=== PATIENT | male | born 1985 | race Caucasian/White ===

== ENCOUNTER 2017-09-16 12:38 | Emergency (ER) | payer BC ==
[2017-09-16] MEDS ORDERED: NA CHLORIDE 0.9% 500 ML ONE (13:29)
[2017-09-16 13:41] LABS: Absolute Lymphocytes (CBC) 1.4 K/uL (0.7-4.9); Absolute Monocytes 0.5 K/uL (0.1-1.3); Absolute Neutrophil 4.2 K/uL (1.8-8.0); Basophils % 0.5 % (0-1.3); Eosinophils % 2.3 % (0-4.4); Hematocrit 48.1 % (39.6-49.0); Lymphocytes % 22.3 % (15.3-44.8); MCH 32.2 pg (27.0-35.0); MCV 94.2 fL (80-100); MPV 9.2 fL (7.6-11.3); Monocytes % 7.9 % (3.3-12.3); RBC Red Blood Cell Count 5.11 M/uL (4.33-5.43)
[2017-09-16 13:47] LABS: Protime INR 1.02
[2017-09-16 13:58] LABS: Albumin 4.6 g/dL (3.4-5.0); Bilirubin Direct 0.4 mg/dL (0-0.2); Bilirubin Total 1.3 mg/dL (0.2-1.0); CKMB Creatine Kinase MB 2.4 ng/mL (0.3-3.6); Potassium 3.1 mmol/L (3.5-5.1); Protein, Total 9.1 g/dL (6.4-8.2)
--- NOTE | 2017-09-16 14:13 | RAD REPORT ---
EXAM DESCRIPTION: Robert Bello (2 Views)09/16/2017 2:07 pm CLINICAL HISTORY: Chest pain COMPARISON: none FINDINGS: The lungs appear clear of acute infiltrate. The heart is normal size IMPRESSION: No acute abnormalities displayed
--- NOTE | 2017-09-16 16:51 | ER ---
Nurse's Notes [facility] Name: Cecil Kruse Jr Age: 31 yrs Sex: Male : 1985 Arrival Date: 09/16/2017 Time: 12:41 Bed 6 Private MD: None, None Diagnosis: Chest pain, unspecified Presentation: 09/16 12:42 Presenting complaint: Patient states: Chest pain 6/10 and mild SOB x 3 days. Pain is hb described as tightness. Pt reports he climbed a mountain in August and experienced similar kind of pain. Transition of care: patient was not received from another setting of care. Onset of symptoms was September 13, 2017. Risk Assessment: Do you want to hurt yourself or someone else? Patient reports no desire to harm self or others. Care prior to arrival: None. 12:42 Method Of Arrival: Ambulatory hb 12:42 Acuity: ISREAL 3 hb 13:00 Initial Sepsis Screen: Does the patient meet any 2 criteria? No. Patient's initial jl7 sepsis screen is negative. Does the patient have a suspected source of infection? No. Patient's initial sepsis screen is negative. Triage Assessment: 13:00 General: Appears in no apparent distress. uncomfortable, Behavior is calm, cooperative, jl7 appropriate for age. Pain: Complains of pain in mid-sternal area. Cardiovascular: Patient's skin is warm and dry. Rhythm is sinus rhythm. Historical: - Allergies: 12:47 Amoxicillin; hb - Immunization history:: Adult Immunizations up to date. - Social history:: Smoking status: Patient uses tobacco products, smokes one-half pack cigarettes per day. - Ebola Screening: : No symptoms or risks identified at this time. - Family history:: not pertinent. - Hospitalizations: : No recent hospitalization is reported. Screenin:32 Abuse screen: Denies threats or abuse. Denies injuries from another. Nutritional jl7 screening: No deficits noted. Tuberculosis screening: No symptoms or risk factors identified. Fall Risk IV access (20 points). Total Escobedo Fall Scale indicates No Risk (0-24 pts). Assessment: 13:00 General: Appears in no apparent distress. uncomfortable, well groomed, well developed, sg well nourished, Behavior is cooperative, appropriate for age, anxious. Pain: Complains of pain in mid-sternal area Pain does not radiate. Pain currently is 6 out of 10 on a pain scale. at worst was 10 out of 10 on a pain scale. Neuro: Level of Consciousness is awake, alert, obeys commands, Oriented to person, place, time, situation, Moves all extremities. Full function Gait is steady, Speech is normal, Facial symmetry appears normal. Cardiovascular: Heart tones S1 S2 present Capillary refill is brisk in bilateral fingers Patient's skin is warm and dry. Chest pain is described as mild, is located in anterior chest wall. Respiratory: Airway is patent Respiratory effort is even, unlabored, Respiratory pattern is regular, symmetrical, Breath sounds are clear. GI: Abdomen is round non-distended, Reports nausea. : No signs and/or symptoms were reported regarding the genitourinary system. EENT: No signs and/or symptoms were reported regarding the EENT system. Derm: Skin is pink, warm \T\ dry. Musculoskeletal: Circulation, motion, and sensation intact. Range of motion: intact in all extremities, Swelling absent. 14:00 Reassessment: Patient appears in no apparent distress at this time. Patient and/or sg family updated on plan of care and expected duration. Pain level reassessed. Patient is alert, oriented x 3, equal unlabored respirations, skin warm/dry/pink. Patient states symptoms have not improved. 15:00 Reassessment: Patient and/or family updated on plan of care and expected duration. Pain jl7 level reassessed. Patient is alert, oriented x 3, equal unlabored respirations, skin warm/dry/pink. 16:19 Reassessment: Patient appears in no apparent distress at this time. Patient and/or jl7 family updated on plan of care and expected duration. Pain level reassessed. Patient is alert, oriented x 3, equal unlabored respirations, skin warm/dry/pink. Vital Signs: 12:46 BP 149 / 100; Pulse 112; Resp 18; Temp 97.7; Pulse Ox 100% ; Pain 8/10; hb 14:15 BP 138 / 85; Pulse 78; Resp 16; Pulse Ox 100% ; jl7 16:16 BP 136 / 85; Pulse 70; Resp 14; Pulse Ox 100% ; jl7 ED Course: 12:41 Patient arrived in ED. sb2 12:41 None, None is Private Physician. sb2 12:46 Triage completed. hb 12:46 Arm band placed on left wrist. hb 12:48 Franko Ziegler MD is Attending Physician. rn 12:56 Harmeet Arroyo RN is Primary Nurse. sg 13:00 Patient has correct armband on for positive identification. Placed in gown. Bed in low jl7 position. Call light in reach. Side rails up X 1. program control analyst on. Pulse ox on. NIBP on. 13:00 Initial lab(s) drawn, by me, sent to lab. Inserted saline lock: 20 gauge in right jl7 antecubital area, using aseptic technique. Blood collected. Patient maintains SpO2 saturation greater than 95% on room air. 13:56 Patient moved to radiology via wheelchair. jb2 15:29 Lipase Sent. sg 15:29 D-Dimer Sent. sg 15:29 Basic Metabolic Panel Sent. sg 15:29 CBC with Diff Sent. sg 15:30 Ckmb Sent. sg 15:30 CPK Sent. sg 15:30 LFT's Sent. sg 15:30 NT PRO-BNP Sent. sg 15:30 PT-INR Sent. sg 15:30 Ptt, Activated Sent. sg 15:30 Troponin (emerg Dept Use Only) Sent. sg 17:03 No provider procedures requiring assistance completed. IV discontinued, intact, jl7 bleeding controlled, No redness/swelling at site. Pressure dressing applied. Administered Medications: 13:15 Drug: NS 0.9% 500 ml Route: IV; Rate: bolus; Site: right antecubital; sg 13:56 Follow up: IV Status: Completed infusion jl7 Outcome: 16:50 Discharge ordered by . rn 17:02 Discharged to home ambulatory. jl7 17:02 Condition: stable 17:02 Discharge instructions given to patient, Instructed on discharge instructions, follow up and referral plans. Demonstrated understanding of instructions, follow-up care. 17:04 Patient left the ED. jl7 Signatures: Harmeet Arroyo, RN RN Luis Monroe jb2 Franko Ziegler MD MD rn Baxter, Heather, RN RN hb Leal, Jahala, RN RN 7 Lucy Pond2
--- NOTE | 2017-09-16 16:51 | EDPHYS ---
Physician Documentation [facility] Name: Cecil Kruse Jr Age: 31 yrs Sex: Male : 1985 Arrival Date: 09/16/2017 Time: 12:41 Bed 6 Private MD: None, None ED Physician Franko Ziegler HPI: 09/16 13:34 This 31 yrs old Male presents to ER via Ambulatory with complaints of Chest rn Pain. 13:34 The patient or guardian reports chest pain that is located primarily in the substernal rn area. The pain radiates to the left arm. Associated signs and symptoms: Pertinent positives: shortness of breath, Pertinent negatives: abdominal pain, cough, diaphoresis, dizziness, headache, lower extremity pain, lower extremity swelling, lightheadedness, nausea, near syncope, palpitations. The chest pain is described as squeezing. Duration: The patient or guardian reports multiple episodes, that are intermittent. Severity of pain: At its worst the pain was moderate in the emergency department the pain has improved. The patient has experienced a previous episode. The patient has not recently seen a physician. Reports chest pain for 3 days, intermittent, worse with exertion, similar episode in past after climbing a mountain, went away on its own, no fever/cough, feels mild sob during episodes, not worse with palpation.. Historical: - Allergies: 12:47 Amoxicillin; hb - Immunization history:: Adult Immunizations up to date. - Social history:: Smoking status: Patient uses tobacco products, smokes one-half pack cigarettes per day. - Ebola Screening: : No symptoms or risks identified at this time. - Family history:: not pertinent. - Hospitalizations: : No recent hospitalization is reported. ROS: 13:34 Constitutional: Negative for fever, chills, and weight loss, Eyes: Negative for injury, rn pain, redness, and discharge, Neck: Negative for injury, pain, and swelling, Cardiovascular: + chest pain Respiratory: + sob, no cough Abdomen/GI: Negative for abdominal pain, nausea, vomiting, diarrhea, and constipation, MS/Extremity: Negative for injury and deformity, Skin: Negative for injury, rash, and discoloration, Neuro: Negative for headache, weakness, numbness, tingling, and seizure. Exam: 13:34 Constitutional: This is a well developed, well nourished patient who is awake, alert, rn appears anxious Head/Face: Normocephalic, atraumatic. Eyes: Pupils equal round and reactive to light, extra-ocular motions intact. Lids and lashes normal. Conjunctiva and sclera are non-icteric and not injected. Cornea within normal limits. Periorbital areas with no swelling, redness, or edema. Neck: Trachea midline, no thyromegaly or masses palpated, and no cervical lymphadenopathy. Supple, full range of motion without nuchal rigidity, or vertebral point tenderness. No Meningismus. Cardiovascular: Regular rate and rhythm with a normal S1 and S2. No gallops, murmurs, or rubs. Normal PMI, no JVD. No pulse deficits. Respiratory: Lungs have equal breath sounds bilaterally, clear to auscultation and percussion. No rales, rhonchi or wheezes noted. No increased work of breathing, no retractions or nasal flaring. Abdomen/GI: Soft, non-tender, with normal bowel sounds. No distension or tympany. No guarding or rebound. No evidence of tenderness throughout. Skin: Warm, dry with normal turgor. Normal color with no rashes, no lesions, and no evidence of cellulitis. MS/ Extremity: Pulses equal, no cyanosis. Neurovascular intact. Full, normal range of motion. Equal circumference. Neuro: Awake and alert, GCS 15, oriented to person, place, time, and situation. Cranial nerves II-XII grossly intact. Motor strength 5/5 in all extremities. Sensory grossly intact. Vital Signs: 12:46 BP 149 / 100; Pulse 112; Resp 18; Temp 97.7; Pulse Ox 100% ; Pain 8/10; hb 14:15 BP 138 / 85; Pulse 78; Resp 16; Pulse Ox 100% ; jl7 16:16 BP 136 / 85; Pulse 70; Resp 14; Pulse Ox 100% ; jl7 MDM: 12:48 Patient medically screened. rn 16:49 Differential diagnosis: abnormal EKG, acute pericarditis, anxiety, chest wall pain, rn cholecystitis, Cholelithiasis esophagitis, gastritis, gastroesophageal reflux disease (GERD), peptic ulcer disease, pleurisy, pneumonia, pneumothorax. Data reviewed: vital signs, nurses notes, lab test result(s), EKG, radiologic studies, plain films, and as a result, I will discharge patient. Counseling: I had a detailed discussion with the patient and/or guardian regarding: the historical points, exam findings, and any diagnostic results supporting the discharge/admit diagnosis, lab results, radiology results, the need for outpatient follow up, to return to the emergency department if symptoms worsen or persist or if there are any questions or concerns that arise at home. Special discussion: Based on the patient's history, exam, and Dx evaluation, there is no indication for emergent intervention or inpatient Tx. It is understood by the patient/guardian that if the Sx's persist or worsen they need to return immediately for re-evaluation. I discussed with the patient/guardian in detail that at this point there is no indication for admission to the hospital. It is understood, however, that if the symptoms persist or worsen the patient needs to return immediately for re-evaluation. 09/16 13:05 Order name: Basic Metabolic Panel rn 09/16 13:05 Order name: CBC with Diff rn 09/16 13:05 Order name: Ckmb rn 09/16 13:05 Order name: CPK rn 09/16 13:05 Order name: LFT's rn 09/16 13:05 Order name: NT PRO-BNP rn 09/16 13:05 Order name: PT-INR rn 09/16 13:05 Order name: Ptt, Activated rn 09/16 13:05 Order name: Troponin (emerg Dept Use Only) rn 09/16 13:05 Order name: D-Dimer rn 09/16 13:05 Order name: Lipase rn 09/16 13:43 Order name: CBC with Automated Diff; Complete Time: 14:07 EDHI 09/16 13:47 Order name: Protime (+INR); Complete Time: 14:07 EDMS 09/16 13:47 Order name: PTT, Activated Partial Thromb; Complete Time: 14:07 EDMS 09/16 13:05 Order name: EKG; Complete Time: 13:06 rn 09/16 13:05 Order name: Cardiac monitoring; Complete Time: 13:12 rn 09/16 13:05 Order name: EKG - Nurse/Tech; Complete Time: 13:12 rn 09/16 13:06 Order name: XRAY Chest Pa And Lat (2 Views) rn 09/16 13:47 Order name: D-Dimer; Complete Time: 14:07 EDHI 09/16 13:55 Order name: Troponin (Emerg Dept Use Only); Complete Time: 14:07 EDMS 09/16 14:00 Order name: Basic Metabolic Panel; Complete Time: 14: EDHI 09/16 14:00 Order name: Liver (Hepatic) Function; Complete Time: 14:07 EDMS 09/16 14:00 Order name: Creatine Phosphokinase; Complete Time: 14:07 EDMS 09/16 14:00 Order name: CKMB Creatine Kinase MB; Complete Time: 14: EDMS 09/16 14:00 Order name: NT PRO-BNP; Complete Time: 14:07 EDMS 09/16 14:00 Order name: Lipase; Complete Time: 14:07 EDMS 09/16 14:14 Order name: RAD; Complete Time: 14:49 EDHI 09/16 14:50 Order name: US Abdomen Limited rn 09/16 13:05 Order name: IV Saline Lock; Complete Time: 13:12 rn 09/16 13:05 Order name: Labs collected and sent; Complete Time: 13:12 rn 09/16 13:05 Order name: O2 Per Protocol; Complete Time: 13:12 rn 09/16 13:05 Order name: O2 Sat Monitoring; Complete Time: 13:12 rn Administered Medications: 13:15 Drug: NS 0.9% 500 ml Route: IV; Rate: bolus; Site: right antecubital; 13:56 Follow up: IV Status: Completed infusion jl7 Disposition: 09/16/17 16:50 Discharged to Home. Impression: Chest pain, unspecified. - Condition is Stable. - Discharge Instructions: Nonspecific Chest Pain. - Medication Reconciliation Form, Thank You Letter, Antibiotic Education, Prescription Opioid Use form. - Follow up: Private Physician; When: As needed; Reason: Recheck today's complaints, Re-evaluation by your physician. - Problem is an ongoing problem. - Symptoms have improved. Signatures: Dispatcher [employer] EDHarmeet Duggan RN Franko Burks MD MD rn Baxter, Heather, RN RN hb Leal, Jahala, RN RN jl7 Corrections: (The following items were deleted from the chart) 17:04 16:50 09/16/2017 16:50 Discharged to Home. Impression: Chest pain, unspecified. jl7 Condition is Stable. Forms are Medication Reconciliation Form, Thank You Letter, Antibiotic Education, Prescription Opioid Use. Follow up: Private Physician; When: As needed; Reason: Recheck today's complaints, Re-evaluation by your physician. Problem is an ongoing problem. Symptoms have improved. rn
--- NOTE | 2017-09-16 17:36 | RAD REPORT ---
EXAM DESCRIPTION: US - Abdomen Exam Limited - 09/16/2017 3:04 pm CLINICAL HISTORY: Abdominal pain. COMPARISON: None. FINDINGS: The gallbladder wall is not thickened. A gallstone is not seen. The biliary tree is normal caliber. IMPRESSION: Unremarkable gallbladder ultrasound.
--- NOTE | 2017-09-16 18:21 | EKG ---
Test Date: 2017-09-16 Test Time: 12:58:08 Wheel Truer: JAGJIT MEASUREMENT RESULTS: Intervals: Rate: 96 RI: 134 QRSD: 106 QT: 352 QTc: 444 [place]: P: 58 RI: 134 QRS: 59 T: 69 INTERPRETIVE STATEMENTS: Normal sinus rhythm Normal ECG No previous ECG available for comparison Electronically Signed On 09-16-17 18:20:44 CDT by Néstor Rizzo
== END 2017-09-16 17:04 | disposition home or self-care (01) ==
LOC: ER 12:38
DX: R07.9 Chest pain, unspecified (principal); F17.210 Nicotine dependence, cigarettes, uncomplicated; Z88.1 Allergy status to other antibiotic agents
CPT/HCPCS: 36415; 71046; 76705; 80048; 80076; 82550; 82553; 83690; 83880; 84484; 85025; 85379; 85610; 85730; 93005; 96360; 99285

== ENCOUNTER 2018-12-06 20:19 | Emergency (ER) | payer BC ==
[2018-12-06] MEDS ORDERED: NA CHLORIDE 0.9% 100 ML IV ONE (20:57)
[2018-12-06] MEDS ORDERED: THIAMINE 200 MG/2 ML INJ ONE (20:57)
--- NOTE | 2018-12-06 21:02 | RAD REPORT ---
EXAM DESCRIPTION: RAD - Chest Single View - 12/06/2018 8:56 pm CLINICAL HISTORY: detox Chest pain. COMPARISON: Chest Pa And Lat (2 Views) dated 09/16/2017 FINDINGS: Portable technique limits examination quality. The lungs are grossly clear. The heart is normal in size. No displaced fractures. IMPRESSION: No acute intrathoracic process suspected.
[2018-12-06 21:09] LABS: Absolute Lymphocytes (CBC) 1.7 K/uL (0.7-4.9); Basophils % 0.9 % (0-1.3); Hematocrit 46.2 % (39.6-49.0); MPV 8.7 fL (7.6-11.3); RBC Red Blood Cell Count 4.77 M/uL (4.33-5.43)
[2018-12-06 21:12] LABS: Protime INR 1.04
[2018-12-06 21:20] LABS: Barbiturates NEGATIVE (NEGATIVE); Benzodiazepines NEGATIVE (NEGATIVE); Cocaine NEGATIVE (NEGATIVE); METHAMPHETAM NEGATIVE (NEGATIVE); Methadone NEGATIVE (NEGATIVE); Opiates NEGATIVE (NEGATIVE); Phencyclidine NEGATIVE (NEGATIVE); THC Cannibis NEGATIVE (NEGATIVE)
[2018-12-06 21:28] LABS: ALT/SGPT 279 U/L (12-78); AST/SGOT 190 U/L (15-37); Albumin 4.5 g/dL (3.4-5.0); Alkaline Phosphatase 71 U/L (45-117); BUN Blood Urea Nitrogen 8 mg/dL (7-18); Bicarbonate 26 mmol/L (21-32); Bilirubin Direct 0.3 mg/dL (0-0.2); Bilirubin Total 0.7 mg/dL (0.2-1.0); Glucose Level 75 mg/dL (74-106); Magnesium 2.1 mg/dL (1.8-2.4); NT PRO-BNP 5 pg/mL (<125); Phosphorus 3.4 mg/dL (2.5-4.9); Potassium 3.6 mmol/L (3.5-5.1); Protein, Total 8.7 g/dL (6.4-8.2); Sodium Level 140 mmol/L (136-145); Troponin (Emerg Dept Use Only) < 0.02 ng/mL (0.0-0.045)
[2018-12-06 21:32] LABS: Urine Blood NEGATIVE (NEG); Urine Glucose NEGATIVE (NEG); Urine Protein NEGATIVE (NEG); Urine Specific Gravity <1.005 (1.005-1.030)
--- NOTE | 2018-12-06 21:47 | ER ---
Nurse's Notes [facility] Name: Cecil Kruse Jr Age: 33 yrs Sex: Male : 1985 Arrival Date: 12/06/2018 Time: 20:20 Bed 25 Private MD: Diagnosis: Alcohol abuse with alcohol-induced sleep disorder;Alcohol abuse with intoxication;Alcohol dependence Presentation: 12/06 20:43 Presenting complaint: Patient states: "I feel like my left side of my face is weaker tr5 and has some numbness. My L arm also wont stop shaking and has some tingling. I have had a couple drinks tonight and i have been detoxing the past few days.". Transition of care: patient was not received from another setting of care. Onset of symptoms was December 06, 2018. Risk Assessment: Do you want to hurt yourself or someone else? Patient reports no desire to harm self or others. Initial Sepsis Screen: Does the patient meet any 2 criteria? No. Patient's initial sepsis screen is negative. Does the patient have a suspected source of infection? No. Patient's initial sepsis screen is negative. Care prior to arrival: None. 20:43 Method Of Arrival: Wheelchair tr5 20:43 Acuity: ISREAL 3 tr5 Historical: - Allergies: 20:47 Amoxicillin; tr5 - Home Meds: 20:47 None [Active]; tr5 - PMHx: 20:47 None; tr5 - PSHx: 20:47 None; tr5 - Immunization history:: Adult Immunizations up to date. - Social history:: Smoking status: Patient uses tobacco products, smokes one-half pack cigarettes per day. - Ebola Screening: : No symptoms or risks identified at this time. Screenin:49 Abuse screen: Denies threats or abuse. Nutritional screening: No deficits noted. tr5 Tuberculosis screening: No symptoms or risk factors identified. Fall Risk None identified. Assessment: 20:49 General: Appears uncomfortable, Behavior is calm, cooperative, Smells of alcohol. Pain: tr5 Denies pain. Neuro: Level of Consciousness is awake, alert, obeys commands, Oriented to person, place, time, Water Service Dispatcher are equal bilaterally Weakness in left Gait is steady, Speech is normal, Facial symmetry appears normal. Cardiovascular: Heart tones present Capillary refill. Respiratory: Airway is patent Respiratory effort is even, unlabored, Respiratory pattern is regular, symmetrical. GI: No signs and/or symptoms were reported involving the gastrointestinal system. : No signs and/or symptoms were reported regarding the genitourinary system. EENT: No signs and/or symptoms were reported regarding the EENT system. Derm: No signs and/or symptoms reported regarding the dermatologic system. Musculoskeletal: No signs and/or symptoms reported regarding the musculoskeletal system. 20:54 Neuro: Reports Shakiness in L arm.. tr5 Vital Signs: 20:35 BP 157 / 102; Pulse 96; Resp 16; Temp 98.6(O); Pulse Ox 100% ; lt1 20:48 Weight 93.44 kg; Height 5 ft. 2 in. (157.48 cm); tr5 20:48 Body Mass Index 37.68 (93.44 kg, 157.48 cm) tr5 ED Course: 20:20 Patient arrived in ED. ag3 20:34 Roxy Norman FNP-C [facility]. snw 20:34 Ruslan Dueñas MD is Attending Physician. snw 20:41 Torres Schmid, VIRGIL is Primary Nurse. tr5 20:46 Triage completed. tr5 20:48 Arm band placed on. tr5 20:49 Call light in reach. Side rails up X 1. Side rails up X2. tr5 20:56 XRAY Chest (1 view) In Process Unspecified. EDMS 20:59 CT Head Brain wo Cont In Process Unspecified. EDMS 21:00 Initial lab(s) drawn, by me, sent to lab. Inserted saline lock: 20 gauge in right lt1 antecubital area, using aseptic technique. 22:05 No provider procedures requiring assistance completed. IV discontinued. tr5 Administered Medications: 21:25 Drug: Thiamine 100 mg Route: IV; Rate: calculated rate; Site: right antecubital; tr5 21:56 Follow up: IV Status: Completed infusion; IV Intake: 100ml tr5 21:56 Drug: Valium 10 mg Route: PO; tr5 Intake: 21:56 IV: 100ml; Total: 100ml. tr5 Outcome: 21:46 Discharge ordered by . snw 22:05 Discharged to home ambulatory, with friend. tr5 22:05 Condition: stable 22:05 Discharge instructions given to patient, friend, Instructed on discharge instructions, follow up and referral plans. medication usage, Demonstrated understanding of instructions, follow-up care, medications. 22:08 Patient left the ED. tr5 Signatures: Dispatcher [employer] EDMS Roxy Norman, FLY SETTER-C FLY SETTER-Mananw Sharon Garcia3 Marissa Ma lt1 Torres Schmid, RN RN tr5
--- NOTE | 2018-12-06 21:47 | EDPHYS ---
Physician Documentation [facility] Name: Cecil Kruse Jr Age: 33 yrs Sex: Male : 1985 Arrival Date: 12/06/2018 Time: 20:20 Bed 25 Private MD: ED Physician Ruslan Dueñas HPI: 12/06 22:06 This 33 yrs old Male presents to ER via Wheelchair with complaints of LEFT snw ARM PAIN, SHAKING. 22:06 Onset: The symptoms/episode began/occurred x 3 days as pt is trying to quit drinking. snw Drinks too much (straight whiskey) x years. Wishes to quit as he is tired of being hung over - states it is too painful to wake up most mornings.. Associated signs and symptoms: Pertinent negatives: abdominal pain, cough, fever, seizure, shortness of breath. The patient has not experienced similar symptoms in the past, but family has similar symptoms. pt states he wants to see Dr. Siddiqui tomorrow and request detox facility. [facility] contacted - phone numbers to rehabs in area given to patient. Historical: - Allergies: 20:47 Amoxicillin; tr5 - Home Meds: 20:47 None [Active]; tr5 - PMHx: 20:47 None; tr5 - PSHx: 20:47 None; tr5 - Immunization history:: Adult Immunizations up to date. - Social history:: Smoking status: Patient uses tobacco products, smokes one-half pack cigarettes per day. - Ebola Screening: : No symptoms or risks identified at this time. ROS: 22:06 Constitutional: Negative for fever, chills, and weight loss, Eyes: Negative for injury, snw pain, redness, and discharge, ENT: Negative for injury, pain, and discharge, Neck: Negative for injury, pain, and swelling, Cardiovascular: Negative for chest pain, palpitations, and edema, Respiratory: Negative for shortness of breath, cough, wheezing, and pleuritic chest pain, Abdomen/GI: Negative for abdominal pain, nausea, vomiting, diarrhea, and constipation, Back: Negative for injury and pain, : Negative for injury, bleeding, discharge, and swelling, MS/Extremity: Negative for injury and deformity, Skin: Negative for injury, rash, and discoloration, Psych: Negative for depression, anxiety, suicide ideation, homicidal ideation, and hallucinations. 22:06 Neuro: Positive for tingling, tremor. Exam: 22:05 Constitutional: This is a well developed, well nourished patient who is awake, alert, snw and in no acute distress. Head/Face: Normocephalic, atraumatic. Eyes: Pupils equal round and reactive to light, extra-ocular motions intact. Lids and lashes normal. Conjunctiva and sclera are non-icteric and not injected. Cornea within normal limits. Periorbital areas with no swelling, redness, or edema. ENT: Nares patent. No nasal discharge, no septal abnormalities noted. Tympanic membranes are normal and external auditory canals are clear. Oropharynx with no redness, swelling, or masses, exudates, or evidence of obstruction, uvula midline. Mucous membranes moist. Neck: Trachea midline, no thyromegaly or masses palpated, and no cervical lymphadenopathy. Supple, full range of motion without nuchal rigidity, or vertebral point tenderness. No Meningismus. Chest/axilla: Normal chest wall appearance and motion. Nontender with no deformity. No lesions are appreciated. Cardiovascular: Regular rate and rhythm with a normal S1 and S2. No gallops, murmurs, or rubs. Normal PMI, no JVD. No pulse deficits. Respiratory: Lungs have equal breath sounds bilaterally, clear to auscultation and percussion. No rales, rhonchi or wheezes noted. No increased work of breathing, no retractions or nasal flaring. Abdomen/GI: Soft, non-tender, with normal bowel sounds. No distension or tympany. No guarding or rebound. No evidence of tenderness throughout. Back: No spinal tenderness. No costovertebral tenderness. Full range of motion. Skin: Warm, dry with normal turgor. Normal color with no rashes, no lesions, and no evidence of cellulitis. MS/ Extremity: Pulses equal, no cyanosis. Neurovascular intact. Full, normal range of motion. Psych: Awake, alert, with orientation to person, place and time. Behavior, mood, and affect are within normal limits. 22:05 Neuro: Orientation: is normal, Mentation: is normal, paresthesias to left face, shakiness to left arm.. Vital Signs: 20:35 BP 157 / 102; Pulse 96; Resp 16; Temp 98.6(O); Pulse Ox 100% ; lt1 20:48 Weight 93.44 kg; Height 5 ft. 2 in. (157.48 cm); tr5 20:48 Body Mass Index 37.68 (93.44 kg, 157.48 cm) tr5 MDM: 20:37 Patient medically screened. snw 21:51 Data reviewed: vital signs, nurses notes. Data interpreted: Pulse oximetry: on room air snw is 100 %. Interpretation: normal. Counseling: I had a detailed discussion with the patient and/or guardian regarding: the historical points, exam findings, and any diagnostic results supporting the discharge/admit diagnosis, the presence of at least one elevated blood pressure reading (>120/80) during this emergency department visit, lab results, radiology results, the need for outpatient follow up, to return to the emergency department if symptoms worsen or persist or if there are any questions or concerns that arise at home. Special discussion: Based on the history and exam findings, there is no indication for further emergent testing or inpatient evaluation. I discussed with the patient/guardian the need to see the primary care provider for further evaluation of the symptoms. 12/06 20:36 Order name: Basic Metabolic Panel; Complete Time: 21:31 snw 12/06 20:36 Order name: CBC with Diff; Complete Time: 21:13 snw 12/06 20:36 Order name: LFT's; Complete Time: 21:31 snw 12/06 20:36 Order name: Magnesium; Complete Time: 21:31 snw 12/06 20:36 Order name: NT PRO-BNP; Complete Time: 21:31 snw 12/06 20:36 Order name: PT-INR; Complete Time: 21:31 snw 12/06 20:36 Order name: Troponin (emerg Dept Use Only); Complete Time: 21:31 snw 12/06 20:36 Order name: Acetaminophen; Complete Time: 21:31 snw 12/06 20:36 Order name: ETOH Level; Complete Time: 21:31 snw 12/06 20:36 Order name: Salicylate; Complete Time: 21:45 snw 12/06 20:36 Order name: Urine Drug Screen; Complete Time: 21:31 snw 12/06 20:36 Order name: Magnesium snw 12/06 20:36 Order name: Phosphorus; Complete Time: 21:31 snw 12/06 20:48 Order name: Glucose, Ancillary Testing; Complete Time: 21:13 EDMS 12/06 20:36 Order name: XRAY Chest (1 view); Complete Time: 21:13 snw 12/06 20:36 Order name: EKG; Complete Time: 20:37 snw 12/06 20:36 Order name: Cardiac monitoring; Complete Time: 20:43 snw 12/06 20:36 Order name: EKG - Nurse/Tech; Complete Time: 21:13 snw 12/06 20:36 Order name: IV Saline Lock; Complete Time: 21:01 snw 12/06 20:36 Order name: Labs collected and sent; Complete Time: 20:43 snw 12/06 20:36 Order name: O2 Per Protocol; Complete Time: 20:42 snw 12/06 20:36 Order name: O2 Sat Monitoring; Complete Time: 20:42 snw 12/06 20:36 Order name: Urine Dipstick-Ancillary (obtain specimen); Complete Time: 21:21 snw 12/06 20:36 Order name: FSBS; Complete Time: 20:42 snw 12/06 20:36 Order name: CT Head Brain wo Cont snw 12/06 21:12 Order name: Urine Dipstick--Ancillary (enter results); Complete Time: 21:45 mw2 Administered Medications: 21:25 Drug: Thiamine 100 mg Route: IV; Rate: calculated rate; Site: right antecubital; tr5 21:56 Follow up: IV Status: Completed infusion; IV Intake: 100ml tr5 21:56 Drug: Valium 10 mg Route: PO; tr5 Disposition: 12/07 09:02 Co-signature as Attending Physician, Ruslan Dueñas MD I agree with the assessment and tw4 plan of care. Disposition: 12/06/18 21:46 Discharged to Home. Impression: Alcohol abuse with alcohol-induced sleep disorder, Alcohol abuse with intoxication, Alcohol dependence. - Condition is Stable. - Discharge Instructions: Alcohol Intoxication, Alcohol Withdrawal, Alcohol Use Disorder, Alcohol Abuse and Nutrition, Alcoholic Liver Disease, What You Need to Know About Alcohol Abuse and Dependence, Youth. - Prescriptions for Vitamin 27- 0.8 mg Oral Tablet - take 1 tablet by ORAL route once daily; 30 tablet. - Work release form, Medication Reconciliation Form, Thank You Letter, Antibiotic Education, Prescription Opioid Use form. - Follow up: Private Physician; When: Tomorrow; Reason: Recheck today's complaints, Continuance of care, Re-evaluation by your physician. Follow up: Emergency Department; When: As needed; Reason: Worsening of condition. - Notes: Substance Abuse [facility] - [address], [place] [address] Signatures: Dispatcher [employer] EDMS Royx Norman, FIELD ACCOUNT DIRECTOR-C FIELD ACCOUNT DIRECTOR-Csnw Ruslan Dueñas MD MD tw4 Torres Schmid RN RN tr5 Corrections: (The following items were deleted from the chart) 12/06 22:08 21:46 12/06/2018 21:46 Discharged to Home. Impression: Alcohol abuse with tr5 alcohol-induced sleep disorder; Alcohol abuse with intoxication; Alcohol dependence. Condition is Stable. Discharge Instructions: Alcohol Intoxication, Alcohol Withdrawal, Alcohol Use Disorder, Alcohol Abuse and Nutrition, Alcoholic Liver Disease, What You Need to Know About Alcohol Abuse and Dependence, Youth. Forms are Medication Reconciliation Form, Thank You Letter, Antibiotic Education, Prescription Opioid Use. Follow up: Private Physician; When: Tomorrow; Reason: Recheck today's complaints, Continuance of care, Re-evaluation by your physician. Follow up: Emergency Department; When: As needed; Reason: Worsening of condition. snw
--- NOTE | 2018-12-07 07:50 | EKG ---
Test Date: 2018-12-06 Test Time: 21:15:32 Orthopedic Tech: HARDEEPT MEASUREMENT RESULTS: Intervals: Rate: 65 LA: 130 QRSD: 106 QT: 414 QTc: 430 [place]: P: 25 LA: 130 QRS: 43 T: 51 INTERPRETIVE STATEMENTS: Normal sinus rhythm Incomplete right bundle branch block Borderline ECG Compared to ECG 09/16/2017 12:58:08 Incomplete right bundle-branch block now present Electronically Signed On 12-07-18 07:49:27 CDT by Néstor Rizzo
--- NOTE | 2018-12-07 11:39 | RAD REPORT ---
EXAM DESCRIPTION: Head Brain Wo Cont CLINICAL HISTORY: 33 years Male paresthesias;Declining state COMPARISON: None TECHNIQUE: Images were obtained in axial, sagittal, and coronal planes. This exam was performed according to our departmental dose-optimization program which includes use of Automated Exposure Control, adjustment of the mA and/or kV according to patient size and/or use of i terative reconstruction technique. FINDINGS: Ventricular system appears normal. No abnormal areas of increased or decreased attenuation are seen involving the brain parenchyma. No e xtra-axial fluid collections noted. No evidence for skull fracture. Symmetric aeration mastoid air cells bilaterally. Unremarkable parana abran sinuses. Prominent tentorium likely normal variant. IMPRESSION: No acute intracranial abnormality. No evidence for hemorrhage, mass lesion, or large acu te infarction. Electronically signed by: Wandy George MD 12/06/2018 9:15 PM CDT Due to temporary technical issues with the PACS/Fluency reporting system, reports are being signed by the in house radiologist as a courtesy to ensure prompt reporting. The interpreting radiologist is f ully responsible for the content of the report.
== END 2018-12-06 22:08 | disposition home or self-care (01) ==
LOC: ER 20:19
DX: F10.229 Alcohol dependence with intoxication, unspecified (principal); F10.282 Alcohol dependence with alcohol-induced sleep disorder; F17.210 Nicotine dependence, cigarettes, uncomplicated; Z88.1 Allergy status to other antibiotic agents
CPT/HCPCS: 96365; 93005; 85025; 80048; 36415; 80320; 83735; 80329 ×2; 84100; 85610; 82947; 80076; 80307 ×8; 81003; 84484; 83880; 70450; 71045; 99284; J3411

== ENCOUNTER 2019-01-13 16:07 | Emergency (ER) | payer BC ==
--- OUTSIDE RECORDS SUMMARY | 2019-01-13 16:11 | XMS REPORT ---
:1985 [facility] [address] [place] [address] [place] [id number] Care Team Providers Name Role Phone Unavailable Unavailable Unavailable Problems This patient has no known problems. Allergies, Adverse Reactions, Alerts This patient has no known allergies or adverse reactions. Medications This patient has no known medications.
[2019-01-13 17:18] LABS: Basophils % 0.6 % (0-1.3); Hematocrit 44.1 % (39.6-49.0); Lymphocytes % 18.1 % (15.3-44.8); RBC Red Blood Cell Count 4.63 M/uL (4.33-5.43)
--- NOTE | 2019-01-13 17:30 | RAD REPORT ---
EXAM DESCRIPTION: RAD - Chest Single View - 01/13/2019 5:25 pm CLINICAL HISTORY: CHEST PAIN Chest pain. COMPARISON: Chest Single View dated 12/06/2018; Chest Pa And Lat (2 Views) dated 09/16/2017 FINDINGS: Portable technique limits examination quality. The lungs are grossly clear. The heart is normal in size. No displaced fractures. IMPRESSION: No acute intrathoracic process suspected.
[2019-01-13 17:31] LABS: ALT/SGPT 78 U/L (12-78); AST/SGOT 40 U/L (15-37); Albumin 4.3 g/dL (3.4-5.0); Alkaline Phosphatase 53 U/L (45-117); BUN Blood Urea Nitrogen 6 mg/dL (7-18); Bicarbonate 28 mmol/L (21-32); Bilirubin Direct 0.2 mg/dL (0-0.2); Glucose Level 86 mg/dL (74-106); Magnesium 1.6 mg/dL (1.8-2.4); NT PRO-BNP 113 pg/mL (<125); Potassium 3.5 mmol/L (3.5-5.1); Sodium Level 137 mmol/L (136-145); Troponin (Emerg Dept Use Only) < 0.02 ng/mL (0.0-0.045)
[2019-01-13] MEDS ORDERED: MAGNESIUM SULFATE 1 gm IVPB 1 GM/100 ML BAG IV ONE (19:04)
--- NOTE | 2019-01-13 19:48 | ER ---
Nurse's Notes [facility] Name: Cecil Kruse Jr Age: 33 yrs Sex: Male : 1985 Arrival Date: 01/13/2019 Time: 16:09 Bed 14 Private MD: Diagnosis: Chest pain, unspecified;Hypomagnesemia Presentation: 01/13 16:16 Presenting complaint: Intermittent substernal chest pain that started this morning hb while watching television. Pain is described as sharp. Also c/o brief nausea and SOB. Transition of care: patient was not received from another setting of care. Onset of symptoms was January 13, 2019. Risk Assessment: Do you want to hurt yourself or someone else? Patient reports no desire to harm self or others. Initial Sepsis Screen: Does the patient meet any 2 criteria? No. Patient's initial sepsis screen is negative. Does the patient have a suspected source of infection? No. Patient's initial sepsis screen is negative. Care prior to arrival: Medication(s) given: ASA, at 1400 today. 16:16 Method Of Arrival: Ambulatory hb 16:16 Acuity: ISREAL 3 hb Historical: - Allergies: 16:19 Amoxicillin; hb - Home Meds: 16:19 Ambien Oral [Active]; hb - PMHx: 16:19 None; hb - PSHx: 16:19 None; hb - Immunization history:: Adult Immunizations up to date. - Social history:: Smoking status: Patient uses tobacco products, smokes one-half pack cigarettes per day. - Ebola Screening: : No symptoms or risks identified at this time. Screenin:03 Abuse screen: Denies threats or abuse. Denies injuries from another. Nutritional ph screening: No deficits noted. Tuberculosis screening: No symptoms or risk factors identified. Fall Risk None identified. Assessment: 16:58 General: Appears in no apparent distress. uncomfortable, Behavior is cooperative, ph appropriate for age, anxious, Denies fever, feeling ill. Pain: Complains of pain in mid-sternal area Pain does not radiate. Quality of pain is described as sharp, stabbing, Pain began " last night". Neuro: Level of Consciousness is awake, alert, obeys commands, Oriented to person, place, time, situation. Cardiovascular: Reports chest pain, diaphoresis, Capillary refill < 3 seconds in bilateral fingers Patient's skin is warm and dry. Rhythm is regular. Respiratory: Airway is patent Respiratory effort is even, unlabored, Respiratory pattern is regular, symmetrical. GI: No signs and/or symptoms were reported involving the gastrointestinal system. Patient currently denies nausea, vomiting. Derm: Skin is intact, is healthy with good turgor, Skin is pink, warm \\T\\ dry. Musculoskeletal: Circulation, motion, and sensation intact. Range of motion: intact in all extremities. 18:00 Reassessment: Patient appears in no apparent distress at this time. Patient and/or ph family updated on plan of care and expected duration. Pain level reassessed. Patient is alert, oriented x 3, equal unlabored respirations, skin warm/dry/pink. 19:00 Reassessment: Patient appears in no apparent distress at this time. Patient and/or ph family updated on plan of care and expected duration. Pain level reassessed. Patient is alert, oriented x 3, equal unlabored respirations, skin warm/dry/pink. Pt resting comfortably, awaiting results of repeat cardiac enzymes. 20:10 Reassessment: Patient appears in no apparent distress at this time. Patient and/or jb4 family updated on plan of care and expected duration. Pain level reassessed. Patient is alert, oriented x 3, equal unlabored respirations, skin warm/dry/pink. PT verbalized understanding of d/c and follow up instructions. Vital Signs: 16:19 BP 149 / 90; Pulse 79; Resp 16; Temp 97.1; Pulse Ox 100% on R/A; Weight 92.99 kg; hb Height 6 ft. 2 in. (187.96 cm); Pain 8/10; 17:04 BP 137 / 87; Pulse 70; Resp 18; Pulse Ox 99% on R/A; ph 18:00 BP 136 / 81; Pulse 70; Resp 18; Pulse Ox 100% on R/A; ph 19:02 BP 132 / 89; Pulse 72; Resp 16; Pulse Ox 100% on R/A; ph 20:00 BP 132 / 86; Pulse 66; Resp 16; Pulse Ox 100% on R/A; jb4 16:19 Body Mass Index 26.32 (92.99 kg, 187.96 cm) ED Course: 16:09 Patient arrived in ED. mr 16:18 Triage completed. hb 16:19 Arm band placed on. hb 16:21 Asuncion Boo [facility]C [facility]. kb 16:21 Lucas Martin MD is Attending Physician. kb 16:23 Shivani Mendoza, RN is Primary Nurse. ph 17:02 Initial lab(s) drawn, by me, sent to lab. Inserted saline lock: 22 gauge in right ph antecubital area, using aseptic technique. Blood collected. Patient maintains SpO2 saturation greater than 95% on room air. 17:03 Patient has correct armband on for positive identification. Placed in gown. Bed in low ph position. Call light in reach. Side rails up X 1. hall monitor on. Pulse ox on. NIBP on. Door closed. Noise minimized. Warm blanket given. 17:25 XRAY Chest (1 view) In Process Unspecified. EDMS 20:00 No provider procedures requiring assistance completed. IV discontinued, intact, jb4 bleeding controlled, No redness/swelling at site. Pressure dressing applied. Administered Medications: 19:09 Drug: Magnesium Sulfate 1 grams Route: IVPB; Infused Over: 30 mins; Site: right jb4 antecubital; 19:39 Follow up: Response: No adverse reaction; IV Status: Completed infusion jb4 20:04 Drug: TORadol - Ketorolac 15 mg Route: IVP; Site: right antecubital; 20:12 Follow up: Response: No adverse reaction jb4 Outcome: 19:48 Discharge ordered by . kb 20:00 Discharged to home ambulatory, with friend. jb4 20:00 Condition: stable 20:00 Discharge instructions given to patient, friend, Instructed on discharge instructions, follow up and referral plans. medication usage, Demonstrated understanding of instructions, medications, Prescriptions given X 1. 20:13 Patient left the ED. jb4 Signatures: Dispatcher [employer] EDFL Asuncion Boo FNP-C FNP-Timbo Siria Guerra mr Shivani Mendoza, RN RN Shayy Mckeon RN RN Gibran Gill RN RN jb4 Nik Quijano
--- NOTE | 2019-01-13 19:48 | EDPHYS ---
Physician Documentation [facility] Name: Cecil Kruse Jr Age: 33 yrs Sex: Male : 1985 Arrival Date: 01/13/2019 Time: 16:09 Bed 14 Private MD: ED Physician Lucas Martin HPI: 01/13 16:45 This 33 yrs old Male presents to ER via Ambulatory with complaints of Chest kb Pain. 16:45 The patient or guardian reports chest pain that is located primarily in the mid-sternal kb area. The pain does not radiate. Associated signs and symptoms: The patient has no apparent associated signs or symptoms. The chest pain is described as sharp. Duration: The patient or guardian reports a single episode, that is still ongoing, and unchanged. Modifying factors: The symptoms are alleviated by nothing. the symptoms are aggravated by palpation of area. Severity of pain: At its worst the pain was moderate in the emergency department the pain is unchanged. The patient has not experienced similar symptoms in the past. The patient has not recently seen a physician. Historical: - Allergies: 16:19 Amoxicillin; hb - Home Meds: 16:19 Ambien Oral [Active]; hb - PMHx: 16:19 None; hb - PSHx: 16:19 None; hb - Immunization history:: Adult Immunizations up to date. - Social history:: Smoking status: Patient uses tobacco products, smokes one-half pack cigarettes per day. - Ebola Screening: : No symptoms or risks identified at this time. ROS: 16:44 Constitutional: Negative for fever, chills, and weight loss, ENT: Negative for injury, kb pain, and discharge, Neck: Negative for injury, pain, and swelling, Respiratory: Negative for shortness of breath, cough, wheezing, and pleuritic chest pain, Abdomen/GI: Negative for abdominal pain, nausea, vomiting, diarrhea, and constipation, Back: Negative for injury and pain, MS/Extremity: Negative for injury and deformity, Skin: Negative for injury, rash, and discoloration, Neuro: Negative for headache, weakness, numbness, tingling, and seizure. 16:44 Cardiovascular: Positive for chest pain, of the mid-sternal area. Exam: 16:44 Constitutional: This is a well developed, well nourished patient who is awake, alert, kb and in no acute distress. Head/Face: Normocephalic, atraumatic. ENT: Nares patent. No nasal discharge, no septal abnormalities noted. Tympanic membranes are normal and external auditory canals are clear. Oropharynx with no redness, swelling, or masses, exudates, or evidence of obstruction, uvula midline. Mucous membranes moist. Neck: Trachea midline, no thyromegaly or masses palpated, and no cervical lymphadenopathy. Supple, full range of motion without nuchal rigidity, or vertebral point tenderness. No Meningismus. Cardiovascular: Regular rate and rhythm with a normal S1 and S2. No gallops, murmurs, or rubs. Normal PMI, no JVD. No pulse deficits. Respiratory: Lungs have equal breath sounds bilaterally, clear to auscultation and percussion. No rales, rhonchi or wheezes noted. No increased work of breathing, no retractions or nasal flaring. Abdomen/GI: Soft, non-tender, with normal bowel sounds. No distension or tympany. No guarding or rebound. No evidence of tenderness throughout. Back: No spinal tenderness. No costovertebral tenderness. Full range of motion. Skin: Warm, dry with normal turgor. Normal color with no rashes, no lesions, and no evidence of cellulitis. MS/ Extremity: Pulses equal, no cyanosis. Neurovascular intact. Full, normal range of motion. Neuro: Awake and alert, GCS 15, oriented to person, place, time, and situation. Cranial nerves II-XII grossly intact. Motor strength 5/5 in all extremities. Sensory grossly intact. Cerebellar exam normal. Normal gait. 16:44 Chest/axilla: Inspection: normal, Palpation: tenderness, that is moderate, of the mid-sternal area, that totally reproduces the patient's complaints, Axilla: are normal. Vital Signs: 16:19 BP 149 / 90; Pulse 79; Resp 16; Temp 97.1; Pulse Ox 100% on R/A; Weight 92.99 kg; hb Height 6 ft. 2 in. (187.96 cm); Pain 8/10; 17:04 BP 137 / 87; Pulse 70; Resp 18; Pulse Ox 99% on R/A; ph 18:00 BP 136 / 81; Pulse 70; Resp 18; Pulse Ox 100% on R/A; ph 19:02 BP 132 / 89; Pulse 72; Resp 16; Pulse Ox 100% on R/A; ph 20:00 BP 132 / 86; Pulse 66; Resp 16; Pulse Ox 100% on R/A; jb4 16:19 Body Mass Index 26.32 (92.99 kg, 187.96 cm) hb MDM: 16:21 Patient medically screened. 16:44 Data reviewed: vital signs, nurses notes. Data interpreted: Pulse oximetry: on room air kb is 100 %. Interpretation: normal. 19:30 KRISTYN Risk Score: TOTAL SCORE = 0. Counseling: I had a detailed discussion with the patient and/or guardian regarding: the historical points, exam findings, and any diagnostic results supporting the discharge/admit diagnosis, lab results, radiology results, the need for outpatient follow up, a family practitioner, to return to the emergency department if symptoms worsen or persist or if there are any questions or concerns that arise at home. 01/13 16:27 Order name: LFT's; Complete Time: 17:50 kb 01/13 16:27 Order name: Basic Metabolic Panel; Complete Time: 17:50 kb 01/13 16:27 Order name: CBC with Diff; Complete Time: 17:24 kb 01/13 16:27 Order name: Magnesium; Complete Time: 17:50 kb 01/13 16:27 Order name: NT PRO-BNP; Complete Time: 17:50 kb 01/13 16:27 Order name: Troponin (emerg Dept Use Only); Complete Time: 17:50 kb 01/13 16:27 Order name: XRAY Chest (1 view); Complete Time: 17:34 kb 01/13 16:27 Order name: EKG; Complete Time: 16:28 kb 01/13 16:27 Order name: Cardiac monitoring; Complete Time: 16:58 kb 01/13 16:27 Order name: EKG - Nurse/Tech; Complete Time: 16:58 kb 01/13 18:28 Order name: Troponin (emerg Dept Use Only); Complete Time: 19:47 kb 01/13 18:28 Order name: EKG; Complete Time: 18:28 kb 01/13 16:27 Order name: IV Saline Lock; Complete Time: 16:58 kb 01/13 16:27 Order name: Labs collected and sent; Complete Time: 16:58 kb 01/13 16:27 Order name: O2 Per Protocol; Complete Time: 17:05 kb 01/13 16:27 Order name: O2 Sat Monitoring; Complete Time: 17:05 kb 01/13 18:28 Order name: EKG - Nurse/Tech; Complete Time: 19:22 kb Administered Medications: 19:09 Drug: Magnesium Sulfate 1 grams Route: IVPB; Infused Over: 30 mins; Site: right jb4 antecubital; 19:39 Follow up: Response: No adverse reaction; IV Status: Completed infusion jb4 20:04 Drug: TORadol - Ketorolac 15 mg Route: IVP; Site: right antecubital; 20:12 Follow up: Response: No adverse reaction jb4 Disposition: 01/14 09:01 Co-signature as Attending Physician, Lucas Martin MD Available for consultation ps1 during the encounter in the ED. Signing chart for administrative purposes. . Disposition: 01/13/19 19:48 Discharged to Home. Impression: Chest pain, unspecified, Hypomagnesemia. - Condition is Stable. - Discharge Instructions: Hypomagnesemia, Nonspecific Chest Pain, [id number]. - Prescriptions for Diclofenac Sodium 75 mg Oral Tablet, Delayed Release (E.C.) - take 1 tablet by ORAL route 2 times per day As needed; 30 tablet. - Medication Reconciliation Form, Thank You Letter, Antibiotic Education, Prescription Opioid Use form. - Follow up: Emergency Department; When: As needed; Reason: Worsening of condition. Follow up: Private Physician; When: 2 - 3 days; Reason: Recheck today's complaints, Continuance of care, Re-evaluation by your physician. Signatures: Dispatcher [employer] EDUT Asuncion Boo, AURELIA-C BALER-CkShayy Teixeira, RN RN Gibran Watts RN RN jb4 Nik Quijano Lucas Martin MD MD ps1 Corrections: (The following items were deleted from the chart) 01/13 20:13 19:48 01/13/2019 19:48 Discharged to Home. Impression: Chest pain, unspecified; jb4 Hypomagnesemia. Condition is Stable. Discharge Instructions: Hypomagnesemia, Nonspecific Chest Pain, [id number]. Forms are Medication Reconciliation Form, Thank You Letter, Antibiotic Education, Prescription Opioid Use. Follow up: Emergency Department; When: As needed; Reason: Worsening of condition. Follow up: Private Physician; When: 2 - 3 days; Reason: Recheck today's complaints, Continuance of care, Re-evaluation by your physician. kb
[2019-01-13] MEDS ORDERED: KETOROLAC 30 MG/ML INJ ONE (20:01)
[2019-01-13 21:28] VITALS: TEMP 97.1
[2019-01-13 21:31] VITALS: O2SAT 100
[2019-01-13 21:41] VITALS: BP 132/86
--- NOTE | 2019-01-14 22:59 | EKG ---
Test Date: 2019-01-13 Test Time: 19:15:32 Education Nurse: THIAGO MEASUREMENT RESULTS: Intervals: Rate: 60 NC: 140 QRSD: 106 QT: 432 QTc: 432 Ingram: P: 28 NC: 140 QRS: 2 T: 33 INTERPRETIVE STATEMENTS: Normal sinus rhythm Incomplete right bundle branch block Borderline ECG Compared to ECG 01/13/2019 16:58:32 No significant changes Electronically Signed On 01-14-19 22:57:15 REPAIRER VENEER SHEET by Néstor Rizzo
--- NOTE | 2019-01-14 23:00 | EKG ---
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
== END 2019-01-13 20:13 | disposition home or self-care (01) ==
LOC: ER 16:07
DX: R07.9 Chest pain, unspecified (principal); E83.42 Hypomagnesemia; Z88.1 Allergy status to other antibiotic agents; F17.210 Nicotine dependence, cigarettes, uncomplicated
CPT/HCPCS: 96365; 93005 ×2; 85025; 80048; 36415; 83735; 80076; 84484 ×2; 83880; 71045; 96375; 99285; J3475